=== PATIENT | male | born 1960 | race Caucasian/White ===

== ENCOUNTER 2019-09-11 04:39 | Emergency (ER) | payer OTHER ==
[2019-09-11] MEDS ORDERED: Lidocaine 1% with EPINEPHrine 1:100,000 10 ML MDV INFILT ONE (04:40)
--- NOTE | 2019-09-11 05:19 | EDM.PDOC ---
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 This occurred approximately 3:55 AM. There was no loss of consciousness. He reports seeing pain in the area that he rates as a 1/10. No vision problems. No nausea or vomiting. No neck pain. No other injuries. No other associated signs or symptoms. There are no other modifying factors.. 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[employer].) ED ROS GENERAL - Review of Systems Review Of Systems: See Below Constitutional: Reports: No Symptoms HEENT: Reports: No Symptoms Respiratory: Reports: No Symptoms Cardiovascular: Reports: No Symptoms Endocrine: Reports: No Symptoms GI/Abdominal: Reports: No Symptoms : Reports: No Symptoms Musculoskeletal: Reports: No Symptoms Skin: Reports: Wound (Laceration to left lateral orbital area) Neurological: Reports: No Symptoms Hematologic/Lymphatic: Reports: No Symptoms Immunologic: Reports: Other (Last tetanus immunization was less than 5 years ago according to the patient.) ED EXAM, HEAD INJURY - Physical Exam Exam: See Below Exam Limited By: No Limitations General Appearance: Alert, WD/WN, No Apparent Distress Head: Normocephalic, Flap, Facial Ecchymosis (Left lateral orbital area), Facial Lacerations (Laceration to the left lateral orbital area), Facial Swelling (Left lateral orbital area), Other (No crepitus or bony deformity.) Nexus Criteria: No: Posterior, Midline Cervical Tenderness, Evidence of Intoxication, Altered Level of Consciousness, Focal Neurological Deficit, Painful Distraction Injuries Eyes: Bilateral Eye: EOMI, Normal Inspection, PERRL Ears: Normal External Exam, Hearing Grossly Normal Nose: Normal Inspection, Normal Mucousa, No Blood Throat/Mouth: Normal Inspection, Normal Oropharynx, Normal Voice, No Airway Compromise Neck: Non-Tender, Full Range of Motion, Normal Alignment, Normal Inspection Respiratory: No Respiratory Distress, Lungs Clear, Normal Breath Sounds, No Accessory Muscle Use, Chest Non-Tender Cardiovascular: Normal Peripheral Pulses, Regular Rate, Rhythm, No Edema, No Murmur GI/Abdominal Exam: Normal Bowel Sounds, Soft, Non-Tender, No Mass Back Exam: Normal Inspection, Full Range of Motion Extremities: Normal Inspection, Normal Range of Motion, Non-Tender, Normal Capillary Refill Neurologic: No Motor/Sensory Deficits, Alert, Normal Mood/Affect, Oriented x 3 Skin: Normal Color, Warm/Dry, Other (5 cm flap-like curvilinear laceration to the left lateral orbital area.) - [place] Coma Score Best Eye Response ([place]): (4) Open Spontaneously Best Verbal Response ([place]): (5) Oriented Best Motor Response ([place]): (6) Obeys Commands [place] Total: 15 ED LACERATION/WOUND & AMNI PROC - Laceration/Wound Repair Left Lateral Face Lac/wound length in cm: 5 (Left lateral oral area) Appearance: Subcutaneous, Moderately Contaminated Distal NVT: Neuro & Vascular Intact Anesthetic Type: Local Local Anesthesia - Lidocaine (Xylocaine): 1% with EPI Local Anesthetic Volume: 5cc (Condition anesthesia and no complications.) Skin Prep: Saline Saline irrigation (cc's): 600 Exploration/Debridement/Repair: Wound Explored, No Foreign Material Found Closed with: Sutures Suture Size: 5-0 # of Sutures: 12 Suture Type: Prolene, Interrupted, Running, Simple Drain Placement: Yes Sterile Dressing Applied: Nurse Tetanus Status Addressed: Other (Patient reports is up-to-date on his tetanus immunization with a tetanus immunization less than 5 years ago.) Complications: No Course - Re-Assessments/Exams Free Text/Narrative Re-Assessment/Exam: 09/11/19 05:20: Patient with repair of left lateral orbital laceration. There is no bony crepitus or deformity noted. Wound care instructions were given to the patient. Departure - Departure Time of Disposition: 05:30 Disposition: Home, Self-Care 01 Condition: Good (Improved) Clinical Impression: Laceration of left orbit Qualifiers: Encounter type: initial encounter Qualified Code(s): S05.42XA - Penetrating wound of orbit with or without foreign body, left eye, initial encounter Facial contusion Qualifiers: Encounter type: initial encounter Qualified Code(s): S00.83XA - Contusion of other part of head, initial encounter - Discharge Information Instructions: Facial or Scalp Contusion, [id number], Head Injury, Adult, Easy -to-Read Additional Instructions: Do not get the wound wet for 3 days. After 3 days, you may get the wound wet but do not immerse the wound in water until the sutures are out. Suture removal in 7 days. You may take Tylenol and ibuprofen as needed for pain. Apply ice packs intermittently to the bruised area for the next 2-3 days. Back to the emergency department for worsening headache, vision problems, signs of infection , uncontrolled vomiting or any other concerning sign or symptom.
== END 2019-09-11 05:50 | disposition home or self-care (01) ==
LOC: FB.ED 04:39
DX: S05.42XA Penetrating wound of orbit with or without foreign body, left eye, initial encounter (principal); W20.8XXA Other cause of strike by thrown, projected or falling object, initial encounter; Y93.89 Activity, other specified
CPT/HCPCS: 12013; 99000; 99282